=== PATIENT | male | born 1960 | race Caucasian/White ===

== ENCOUNTER 2016-11-17 10:37 | Day surgery (SDC) | payer BC ==
[2016-11-15 10:53] VITALS: BMI 30.6
[~2016-11-17 10:37] MED LIST: LACTATED RINGERS 1,000 ML IV SCH
[2016-11-17 11:06] VITALS: TEMP 97.7
[2016-11-17] MEDS ORDERED: LIDOCAINE 1% 20 ML VIAL (10MG/ML) FOR IV START INTRADERMA ONE (11:15)
[2016-11-17] MEDS ORDERED: MIDAZOLAM 2 MG/2 ML VIAL ONE (12:32)
[2016-11-17] MEDS ORDERED: PROPOFOL 10 MG/ML 20 ML VIAL IV ONE (12:32)
--- NOTE | 2016-11-17 12:40 | P.GSHP ---
History of Present Illness H&P Date: 11/17/16 Chief Complaint: Anemia, GI bleed This a 56-year-old male referred from Dr. Randall. Patient presents today for EGD and colonoscopy. He's had issues with rectal bleeding and anemia. - Constitutional Constitutional: Reports as per HPI Past Medical History Past Medical History: GERD/Reflux, Hypertension, Osteoarthritis (OA) Additional Past Medical History / Comment(s): anemia, recent episode of blood in stools History of Any Multi-Drug Resistant Organisms: None Reported Past Surgical History: Hernia Repair, Orthopedic Surgery Additional Past Surgical History / Comment(s): rt inguinal hernia repair, anderson hand sx Past Anesthesia/Blood Transfusion Reactions: Postoperative Nausea & Vomiting ( PONV) Additional Past Anesthesia/Blood Transfusion Reaction / Comment(s): claustrophobia Past Psychological History: No Psychological Hx Reported Additional Psychological History / Comment(s): PT LIVES AT HOME WITH HIS , 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 NO SERVICE. NO TRAVLES ABROAD. Smoking Status: Former smoker Past Alcohol Use History: None Reported Additional Past Alcohol Use History / Comment(s): started smoking at age 18 quit at age 38 smoked few cig per day Past Drug Use History: None Reported - Past Family History Father Family Medical History: Myocardial Infarction ([place]) Additional Family Medical History / Comment(s): at age 59 Mother Family Medical History: Myocardial Infarction ([place]) Additional Family Medical History / Comment(s): of mi at age 77 Brother(s) Family Medical History: Cancer Additional Family Medical History / Comment(s): at age 62 from pancreatic cancer Medications and Allergies Home Medications Medication Instructions Recorded Confirmed Type Aspirin 81 mg PO DAILY 12/23/15 11/17/16 History [place]-3 Fatty Acids/Fish Oil [Fish 1 cap PO DAILY 12/23/15 11/17/16 History Oil 1,000 mg Softgel] Losartan/Hydrochlorothiazide 1 each PO DAILY 11/15/16 11/17/16 History [Losartan-Hctz 100-25 mg Tab] Multivitamin [Men's Multi-Vitamin] 1 each PO DAILY 11/15/16 11/17/16 History Pantoprazole Sodium [Protonix] 40 mg PO DAILY 11/15/16 11/17/16 History amLODIPine [Norvasc] 5 mg PO DAILY 11/15/16 11/17/16 History Allergies Allergy/AdvReac Type Severity Reaction Status Date / Time No Known Allergies Allergy Verified 11/17/16 10:58 Surgical - Exam Vital Signs Temp Pulse Resp BP Pulse Ox 97.7 F 88 16 144/82 99 11/17/16 11:05 11/17/16 11:05 11/17/16 11:05 11/17/16 11:05 11/17/16 11:05 - General well developed, no distress - Eyes PERRL - ENT normal pinna - Neck no masses - Respiratory normal expansion - Cardiovascular Rhythm: regular - Abdomen Abdomen: soft, non tender Assessment and Plan Plan: GI bleed, anemia. We'll perform EGD and colonoscopy.
--- NOTE | 2016-11-17 12:59 | P.OP ---
Date of Procedure: 11/17/16 Preoperative Diagnosis: Anemia GI bleed Postoperative Diagnosis: Large hiatal hernia Mild esophagitis Antral gastritis Normal colon Procedure(s) Performed: EGD Colonoscopy Anesthesia: MAC Surgeon: Alfonso Vallejo Pathology: other (Antrum, esophagus) Condition: stable Disposition: PACU Description of Procedure: PROCEDURE: The patient was placed on the endoscopy table in the lateral position. Digital rectal examination was performed which revealed no abnormalities. The prostate was symmetrical without nodules. Flexible colonoscope was then placed in the patient's anus and passed throughout the entire colon. The ileocecal valve was visualized. The cecum, ascending, transverse, descending and sigmoid colon were normal. The rectum was normal as well. There were no masses, polyps or diverticula noted in the entire colon. Next, the gastroscope was placed oropharynx and passed into the esophagus and into the stomach. Scope was then placed through the pylorus. He first and second portion of the duodenum appeared normal. The scope was then brought back the antrum there is evidence of mild gastritis. This area is biopsied. The scope was then retroflexed and there was a large hiatal hernia. The GE junction was at 37 cm. The distal esophagus appeared minimally inflamed a biopsies was performed. The proximal esophagus appeared normal. Scope was then withdrawn for patient.
[2016-11-17 13:05] VITALS: RESP 18
[2016-11-17 13:38] VITALS: BP 130/77; PULSE 83
== END 2016-11-17 14:00 | disposition home or self-care (01) ==
LOC: ORWHC2ENDO 10:37
PROVIDERS: ATTEND Surgery
DX: K21.0 Gastro-esophageal reflux disease with esophagitis (principal); K44.9 Diaphragmatic hernia without obstruction or gangrene; K29.50 Unspecified chronic gastritis without bleeding; D64.9 Anemia, unspecified; Z87.19 Personal history of other diseases of the digestive system; I10 Essential (primary) hypertension; M19.90 Unspecified osteoarthritis, unspecified site; Z79.82 Long term (current) use of aspirin; Z79.899 Other long term (current) drug therapy; Z87.891 Personal history of nicotine dependence
CPT/HCPCS: 88305; 88342; 45378; 43239; J2250; J2704

== ENCOUNTER 2016-12-13 07:50 | Observation (INO) | payer BC ==
[2016-12-06 15:51] VITALS: BMI 31.5
[~2016-12-13 07:50] MED LIST changes: +DEXAMETHASONE SOD PHOSPHATE 10 MG/ML 1 ML VIAL IV ONE; +HEPARIN SODIUM,PORCINE 5,000 UNIT/ML 1 ML VIAL SQ ONE; -LACTATED RINGERS 1,000 ML IV SCH; +LIDOCAINE 1% 20 ML VIAL (10MG/ML) FOR IV START INTRADERMA PRN; +ONDANSETRON 4 MG/2 ML VIAL IVP ONE; +SCOPOLAMINE 1.5MG/72HR PATCH TRANSDERM ONE; +ceFAZolin 2 GM in SODIUM CHLORIDE 0.9% 100 ML IVPB ONE
[2016-12-13] MEDS: LACTATED RINGERS 1,000 ML IV SCH (08:21)
--- NOTE | 2016-12-13 08:51 | P.GSHP ---
History of Present Illness H&P Date: 12/13/16 Chief Complaint: GERD This is a 56-year-old male referred from Dr. Randall.The patient has had long- standing problems with reflux esophagitis. The patient underwent recent EGD is found have evidence of esophagitis. Patient has been well informed on the procedure of laparoscopic Derrick fundoplication. The patient is aware the risk of the conversion to the open procedure, risk of injury to the stomach, liver and spleen. The patient is also a risk of recurrent GERD and dysphagia symptoms. The patient understands there is a postoperative diet of full liquids for 2 weeks after surgery. - Constitutional Constitutional: Reports as per HPI Past Medical History Past Medical History: GERD/Reflux, Hypertension, Osteoarthritis (OA) Additional Past Medical History / Comment(s): anemia, recent episode of blood in stools- RESOLVED, HIATAL HERNIA History of Any Multi-Drug Resistant Organisms: None Reported Past Surgical History: Hernia Repair, Orthopedic Surgery Additional Past Surgical History / Comment(s): rt inguinal hernia repair, anderson hand sx, EGD AND COLONOSCOPY 11/17/16 Past Anesthesia/Blood Transfusion Reactions: Postoperative Nausea & Vomiting ( PONV) Additional Past Anesthesia/Blood Transfusion Reaction / Comment(s): claustrophobia Past Psychological History: No Psychological Hx Reported Additional Psychological History / Comment(s): PT LIVES AT HOME WITH HIS , 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 NO SERVICE. NO TRAVLES ABROAD. Smoking Status: Former smoker Past Alcohol Use History: None Reported Additional Past Alcohol Use History / Comment(s): started smoking at age 18 quit at age 38 smoked few cig per day Past Drug Use History: None Reported - Past Family History Father Family Medical History: Myocardial Infarction ([place]) Additional Family Medical History / Comment(s): at age 59 Mother Family Medical History: Myocardial Infarction ([place]) Additional Family Medical History / Comment(s): of mi at age 77 Brother(s) Family Medical History: Cancer Additional Family Medical History / Comment(s): at age 62 from pancreatic cancer Medications and Allergies Home Medications Medication Instructions Recorded Confirmed Type Aspirin 81 mg PO DAILY 12/23/15 12/06/16 History [place]-3 Fatty Acids/Fish Oil [Fish 1 cap PO DAILY 12/23/15 12/06/16 History Oil 1,000 mg Softgel] Losartan/Hydrochlorothiazide 1 each PO DAILY 11/15/16 12/06/16 History [Losartan-Hctz 100-25 mg Tab] Multivitamin [Men's Multi-Vitamin] 1 each PO DAILY 11/15/16 12/06/16 History Pantoprazole Sodium [Protonix] 40 mg PO DAILY 11/15/16 12/06/16 History amLODIPine [Norvasc] 5 mg PO DAILY 11/15/16 12/06/16 History Allergies Allergy/AdvReac Type Severity Reaction Status Date / Time No Known Allergies Allergy Verified 12/13/16 08:18 Surgical - Exam Vital Signs Temp Pulse Resp BP Pulse Ox 97.1 F L 84 16 157/103 98 12/13/16 08:20 12/13/16 08:20 12/13/16 08:20 12/13/16 08:20 12/13/16 08:20 - General well developed, no distress - Eyes PERRL - ENT normal pinna - Neck no masses - Respiratory normal expansion - Cardiovascular Rhythm: regular - Abdomen Abdomen: soft, non tender Assessment and Plan Plan: GERD. We'll perform laparoscopic Derrick fundoplication.
[2016-12-13] MEDS ORDERED: LIDOCAINE 1% INJ 10MG/ML (20 ML MDV) ONE (09:24)
[2016-12-13] MEDS ORDERED: MIDAZOLAM 2 MG/2 ML VIAL ONE (09:24)
[2016-12-13] MEDS ORDERED: PROPOFOL 10 MG/ML 20 ML VIAL IV ONE (09:24)
[2016-12-13] MEDS ORDERED: SUCCINYLCHOLINE CHLORIDE 100 MG/5 ML SYR IV ONE (09:24)
[2016-12-13] MEDS ORDERED: GLYCOPYRROLATE 0.2 MG/ML 2 ML VIAL ONE (09:24)
[2016-12-13] MEDS ORDERED: PHENYLEPHRINE-0.9% NACL SYG 1 MG/10 ML SYRINGE ONE (09:24)
[2016-12-13] MEDS ORDERED: HYDROmorphone (PF) 1 MG/ML ONE (09:24)
[2016-12-13] MEDS ORDERED: fentaNYL (PF) 50 MCG/ML 2 ML AMP ONE (09:24)
[2016-12-13] MEDS ORDERED: ePHEDrine 50 MG/ML 1 ML AMP ONE (09:24)
[2016-12-13] MEDS ORDERED: ROCURONIUM BROMIDE 10 MG/ML 10 ML VIAL IV ONE (09:24)
[2016-12-13] MEDS ORDERED: NEOSTIGMINE 1 MG/ML 10 ML VIAL ONE (09:24)
[2016-12-13] MEDS ORDERED: BUPIVACAIN-EPI 0.25%-1:200,000 30 ML VIAL SQ ONE (09:48)
[2016-12-13] MEDS ORDERED: LACTATED RINGERS 1,000 ML IV ONE ×2 (10:13→11:46)
[2016-12-13] MEDS ORDERED: ONDANSETRON 4 MG/2 ML VIAL IVP PRN ×2 (10:29→18:21)
--- NOTE | 2016-12-13 10:29 | P.OP ---
Date of Procedure: 12/13/16 Preoperative Diagnosis: GERD Postoperative Diagnosis: GERD Procedure(s) Performed: Laparoscopic Derrick fundoplication Implants: Anesthesia: CASIMIRO Surgeon: Alfonso Vallejo Estimated Blood Loss (ml): 5 Pathology: none sent Condition: stable Disposition: PACU Indications for Procedure: Operative Findings: Description of Procedure: The patient was placed on the operating table in the supine position. The patient received general anesthesia. And was placed in dorsal lithotomy position. The patient was prepped and draped in the usual sterile fashion. The skin incision sites were anesthetized with 1% local Xylocaine. The skin was incised in the left periumbilical area and then using a blade less 5 mm trocar under direct visualization panel cavity was entered. After adequate insufflation the laparoscope was then placed into the peritoneal cavity. Next a 5 mm trochars placed in the right epigastric position. Another 5 millimeter trocar the right lateral position. Another 5 millimeter trocar in the left lateral position a 5 mm trocar is placed in the left epigastric position. And then the initial 5 mm trocar was exchanged for a 10 mm trocar. The left lateral lobe liver was retracted. The hernia was seen. The crural defect was then dissected using the Harmonic scissors device. A 360 crural dissection was performed the esophagus stomach was reduced back into the peritoneal Cavity. The crural defect was then closed using 2-0 Ethibond suture. Next the fundus of the stomach was mobilized using the [place] scissors device. and then a 58-Montserratian bougie dilator was placed oropharynx passed into the esophagus and stomach the fundal plication wrap was then performed by grasping the fundus posteriorly and bringing it around the esophagus and stomach fundoplication was then performed using 2-0 Ethibond suture. Care was taken that the fundal location rested over top of the intra-abdominal esophagus. There was no injury seen to the stomach or esophagus. The dilator was then withdrawn. The abdomen was irrigated there is no bleeding seen. The trochars were then withdrawn and then skin incision sites were closed using 3-0 Monocryl suture Steri-Strips are applied. Patient thought procedure well and sent to recovery room in stable condition.
[2016-12-13] MEDS: HYDROmorphone 1 MG/ML 1 ML SYRINGE IVP PRN ×3 (10:37→11:05)
[2016-12-13] MEDS ORDERED: KETOROLAC 30 MG/ML 1 ML VIAL IVP ONE (11:00)
[2016-12-13] MEDS: METOCLOPRAMIDE 5 MG/ML 2 ML VIAL IVP SCH ×2 (14:19→17:00)
[2016-12-13] MEDS ORDERED: SCOPOLAMINE 1.5MG/72HR PATCH TRANSDERM SCH (18:30)
[2016-12-13] MEDS: D5-0.45% NACL WITH KCL 20MEQ/L 1,000 ML IV SCH (19:35)
[2016-12-14] MEDS: D5-0.45% NACL WITH KCL 20MEQ/L 1,000 ML IV SCH ×2 (00:14→09:57)
[2016-12-14] MEDS: METOCLOPRAMIDE 5 MG/ML 2 ML VIAL IVP SCH ×2 (00:21→05:28)
[2016-12-14 01:11] VITALS: RESP 16
[2016-12-14] MEDS: HYDROmorphone 1 MG/ML 1 ML SYRINGE IVP PRN ×3 (01:57→11:59)
[2016-12-14 07:08] VITALS: BP 128/79; PULSE 90; TEMP 97.1
[2016-12-14] MEDS ORDERED: amLODIPine 5 MG TAB PO SCH (09:00)
[2016-12-14] MEDS ORDERED: ENOXAPARIN 40 MG/0.4 ML SYRINGE SQ SCH (09:00)
[2016-12-14] MEDS ORDERED: ASPIRIN 81 MG CHEW PO SCH (09:00)
[2016-12-14] MEDS ORDERED: LOSARTAN-HCTZ 50-12.5 MG 1 EACH TAB PO SCH (09:00)
[2016-12-14] MEDS: LACTATED RINGERS 1,000 ML IV SCH (09:57)
--- NOTE | 2016-12-14 10:29 | FL ---
SINGLE CONTRAST ESOPHAGRAM: CLINICAL HISTORY: 56-year-old male rule out leak/obstruction, status post Derrick fundoplication TECHNIQUE: Single contrast exam performed with 50 ml Omnipaque 350 contrast. Total fluoroscopy time: 40 seconds. FINDINGS: The patient swallowed oral contrast without difficulty or delay. Esophageal peristalsis and motility are within normal limits. There is mild delay in the passage of contrast from the lower esophagus i nto the stomach with a intermittent intraesophageal reflux. There is intermittent passage into the st omach with postoperative changes of Derrick fundoplication. There is no evidence of contrast extravasa tion to suggest leak. No free air seen. IMPRESSION: No evidence of leak status post Derrick fundoplication. There is mild obstruction suggestive of postsu rgical edema. No free air.
--- NOTE | 2016-12-14 10:53 | CONS ---
DATE OF CONSULTATION: This is a 56-year-old white male, a long-standing patient of mine that had severe reflux esophagitis. He has tried many years to try to control it with protein pump inhibitors without any success. Recently had an EGD, which showed moderately severe esophagitis along with continuous dysphagic symptoms and was only able to drink fluids for the last couple of weeks at which time he saw Dr. Vallejo and the patient was prepared for a Derrick procedure and it was completed. His past medical history of anemia recently secondary from esophageal bleeding. His colonoscopy was negative. He also has a large hiatal hernia, which has been present there over the last several years. Past surgical history is hernia repair and he had orthopedic surgery multiple on his feet. His medical history is that of long-standing history of hypertension. His medications including aspirin 81 a day, [place]-3 for fish oil, losartan, hydrochlorothiazide 125 daily, multiple vitamin daily, Protonix 40 daily and Norvasc 5 mg a day. He has no allergies. Family history is significant, he had a brother who of pancreatic cancer. He had a mother who had a myocardial infarction, at the age of 77 and multiple history of hypertension in the family. He is a nonsmoker, nondrinker. 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 He has no drug use and he does not drink alcohol. REVIEW OF SYSTEMS: CARDIOPULMONARY: He has no shortness of breath or chest pain, orthopnea, no paroxysmal nocturnal dyspnea. GI: No hematemesis but he has gastritis problems and esophagitis with severe abdominal pain, nausea and occasional vomiting and did have some melena. has been negative. NEUROMUSCULAR: He has arthritis in his hands and his knees. He has also had a surgery on his left knee. He also has some minimal problems with his lower back and has been stable. Vital signs today shows blood pressure 120/79, heart rate is in the 90s, respiratory rate is 16, temperature is 97.1. EYES: Pupils are equal, round, and reactive to light and accommodation. ENT: Showed tympanic membranes and pharynx to be negative. Neck is supple with midline trachea. CHEST: Essentially clear to auscultation. HEART: Sinus rhythm with no murmur. ABDOMEN: Soft, I have got some incisions that are present no palpable masses. No organomegaly. ASSESSMENT: 1. Derrick funduscopic fundoplication surgery. 2. Long-standing history of hypertension. 3. Gastroesophageal reflux. 4. Generalized osteoarthritis. PLAN: Will continue with the medication. I will follow him accordingly postoperative. At this time, he is stable. Thank you, Dr. Vallejo for consult.
--- NOTE | 2016-12-14 11:44 | P.DS ---
Providers Date of admission: 12/13/16 17:44 Expected date of discharge: 12/14/16 Attending physician: Alfonso Vallejo Consults: 12/13/16 10:29 Consult Physician Routine Consulting Provider: Papi Randall Consult Reason/Comments: Medical management Do you want consulting provider notified?: Yes Primary care physician: Papi Randall Hospital Course: Patient is a 56-year-old male, patient of Dr. Randall in the outpatient setting, with medical history significant for reflux esophagitis not managed with conservative treatment. Patient presented to the hospital for elective laparoscopic Derrick fundoplication. Patient tolerated procedure well. Postoperative swallow study without evidence of leak or obstruction. Patient had no complaints of dysphagia. Patient had an uneventful postoperative recovery and was deemed stable for discharge to home with close follow-up in the outpatient setting. Discharge diagnoses: GERD status post laparoscopic Derrick fundoplication. The above impression and plan have been discussed and directed by Dr. Vallejo. Mariaelena FLOYD acting as scribe for Dr. Vallejo. Pertinent Studies: Pharynx slightly airings with fluoroscopy Procedures: Laparoscopic Derrick fundoplication Patient Condition at Discharge: Good Plan - Discharge Summary New Discharge Prescriptions: Docusate [Colace] 100 mg PO BID #20 capsule HYDROcodone/APAP 7.5-325MG [[place] 7.5-325] 1 tab PO Q6HR PRN #28 tab PRN Reason: Pain Discharge Medication List Aspirin 81 mg PO DAILY 12/23/15 [History] [place]-3 Fatty Acids/Fish Oil [Fish Oil 1,000 mg Softgel] 1 cap PO DAILY [History] Losartan/Hydrochlorothiazide [Losartan-Hctz 100-25 mg Tab] 1 tab PO DAILY [History] Multivitamin [Men's Multi-Vitamin] 1 tab PO DAILY 11/15/16 [History] amLODIPine [Norvasc] 5 mg PO DAILY 11/15/16 [History] Docusate [Colace] 100 mg PO BID #20 capsule 12/14/16 [Rx] HYDROcodone/APAP 7.5-325MG [[place] 7.5-325] 1 tab PO Q6HR PRN #28 tab 12/14/16 [ Rx] Follow up Appointment(s)/Referral(s): Papi Randall MD [Primary Care Provider] - 1 Week Alfonso Vallejo MD [STAFF PHYSICIAN] - 2 Weeks Patient Instructions/Handouts: *Surgery [facility] - ([facility]) Lap Derrick Fundiplication Post-Op Instructions Activity/Diet/Wound Care/Special Instructions: No heavy lifting, pushing, or pulling items greater than 10 pounds. Full liquid diet for 2 weeks. No caffeinated beverages or straws. Shower daily, no soaking in bath tubs, pools, or hot tubs. No driving while taking pain medication. Notify surgeon with any signs or symptoms of infection, increased pain, or not tolerating diet. Discharge Disposition: HOME SELF-CARE
== END 2016-12-14 12:50 | disposition home or self-care (01) ==
LOC: OR 07:50 → EDSTATUS 10:00 → 3SUR 10:37 → OR 17:46
PROVIDERS: ADMIT Surgery; ATTEND Surgery
DX: K44.9 Diaphragmatic hernia without obstruction or gangrene (principal); K21.0 Gastro-esophageal reflux disease with esophagitis; I10 Essential (primary) hypertension; D64.9 Anemia, unspecified; M15.9 Polyosteoarthritis, unspecified; Z87.891 Personal history of nicotine dependence; Z82.49 Family history of ischemic heart disease and other diseases of the circulatory system; Z79.899 Other long term (current) drug therapy; Z79.82 Long term (current) use of aspirin
CPT/HCPCS: 74210; 43280; G0378 ×2; J2250; J1644; J1100; J2710; J2765 ×2; Q9967; J0690; J2405 ×2; J2001; J1650; J3010; J1885; J1170 ×2; J2370; J0330; J2704; 96374; 96375; 96376

== ENCOUNTER → 2018-05-15 | Outpatient (CLI) | payer BC ==
[2018-05-15 11:40] LABS: Partial Thromboplastin Time 22.5 sec (22.0-30.0); Prothrombin Time 10.1 sec (9.0-12.0)
[2018-05-15 11:41] LABS: HCT 43.4 % (39.0-53.0); HGB 14.4 gm/dL (13.0-17.5); MCHC 33.2 g/dL (31.0-37.0); MCV 96.4 fL (80.0-100.0); Platelet Count 307 k/uL (150-450); RDW 12.5 % (11.5-15.5); WBC 7.2 k/uL (3.8-10.6)
[2018-05-15 11:45] LABS: Appearance,Urine Clear (Clear); Bilirubin,Urine Negative (Negative); Blood,Urine Negative (Negative); Color,Urine Yellow; Glucose,Urine (UA) Negative (Negative); Ketones,Urine Negative (Negative); Leukocyte Esterase,Urine Negative (Negative); Nitrite,Urine Negative (Negative); PH, Urine 6.5 (5.0-8.0); Protein,Urine Negative (Negative); Specific Gravity,Urine 1.016 (1.001-1.035); Urobilinogen,Urine <2.0 mg/dL (<2.0)
[2018-05-15 12:06] LABS: ALT 42 U/L (21-72); AST 26 U/L (17-59); Albumin 3.9 g/dL (3.5-5.0); Alkaline Phosphatase 49 U/L (38-126); Anion Gap 9 mmol/L; Blood Urea Nitrogen 19 mg/dL (9-20); Calcium 9.7 mg/dL (8.4-10.2); Carbon Dioxide 27 mmol/L (22-30); Chloride 104 mmol/L (98-107); Glucose 98 mg/dL (74-99); Sodium 140 mmol/L (137-145); Total Bilirubin 0.4 mg/dL (0.2-1.3); Total Protein 6.9 g/dL (6.3-8.2)
== END | disposition home or self-care (01) ==
LOC: LABWHC1 09:34
PROVIDERS: ATTEND Orthopaedic Surgery
DX: Z01.812 Encounter for preprocedural laboratory examination (principal); Z79.01 Long term (current) use of anticoagulants
CPT/HCPCS: 36415; 80053; 81003; 85027; 85610; 85730; 87070

== ENCOUNTER 2018-06-12 05:38 | Inpatient (IN) | payer BC ==
[~2018-06-12 05:38] MED LIST changes: +ACETAMINOPHEN TAB 500 MG TAB PO ONE; -DEXAMETHASONE SOD PHOSPHATE 10 MG/ML 1 ML VIAL IV ONE; -HEPARIN SODIUM,PORCINE 5,000 UNIT/ML 1 ML VIAL SQ ONE; -LIDOCAINE 1% 20 ML VIAL (10MG/ML) FOR IV START INTRADERMA PRN; +MELOXICAM 7.5 MG TAB PO ONE; -ONDANSETRON 4 MG/2 ML VIAL IVP ONE; -SCOPOLAMINE 1.5MG/72HR PATCH TRANSDERM ONE; +TRANEXAMIC ACID 1,000 MG in SODIUM CHLORIDE 0.9% 50 ML IVPB ONE; -ceFAZolin 2 GM in SODIUM CHLORIDE 0.9% 100 ML IVPB ONE; +ceFAZolin IN SWFI 2 GM/20 ML SYRINGE IVP ONE
[2018-06-12] MEDS ORDERED: ONDANSETRON 4 MG/2 ML VIAL IVP ONE (05:52)
[2018-06-12] MEDS ORDERED: SCOPOLAMINE 1.5MG/72HR PATCH TRANSDERM ONE (05:52)
[2018-06-12] MEDS ORDERED: MIDAZOLAM 2 MG/2 ML VIAL IV PRN (05:52)
[2018-06-12] MEDS ORDERED: LACTATED RINGERS 1,000 ML IV SCH (05:52)
[2018-06-12] MEDS ORDERED: HYDROmorphone 0.5 MG/0.5 ML SYRINGE IVP PRN (05:52)
[2018-06-12] MEDS ORDERED: DEXAMETHASONE SOD PHOSPHATE 10 MG/ML 1 ML VIAL IV ONE (05:52)
[2018-06-12] MEDS ORDERED: NALOXONE 0.4 MG/ML 1 ML VIAL IV PRN (06:59)
[2018-06-12] MEDS ORDERED: MAGNESIUM HYDROXIDE 2,400 MG/10 ML CUP PO PRN (06:59)
[2018-06-12] MEDS ORDERED: DIAZEPAM 5 MG TAB PO PRN (06:59)
[2018-06-12] MEDS ORDERED: NA PHOS,M-B/NA PHOS,DI-BA 133 ML ENEMA RECTAL PRN (06:59)
[2018-06-12] MEDS ORDERED: HYDROcodone/APAP 5-325MG 1 EACH TAB PO PRN (06:59)
[2018-06-12] MEDS ORDERED: hydrOXYzine PAMOATE 25 MG CAP PO PRN (06:59)
[2018-06-12] MEDS ORDERED: ONDANSETRON 4 MG/2 ML VIAL IVP PRN (06:59)
[2018-06-12] MEDS ORDERED: HYDROmorphone 1 MG/ML 1 ML SYRINGE IVP PRN ×3 (06:59)
[2018-06-12] MEDS ORDERED: BISACODYL 10 MG SUPP RECTAL PRN (06:59)
[2018-06-12] MEDS ORDERED: TRANEXAMIC ACID 1,000 MG/10 ML VIAL ONE (07:05)
[2018-06-12] MEDS ORDERED: SODIUM CHLORIDE 0.9% 100 ML BAG ONE (07:05)
[2018-06-12] MEDS ORDERED: fentaNYL (PF) 50 MCG/ML 2 ML AMP ONE (07:05)
[2018-06-12] MEDS ORDERED: PROPOFOL 10 MG/ML 20 ML VIAL IV ONE (07:05)
[2018-06-12] MEDS ORDERED: MIDAZOLAM 2 MG/2 ML VIAL ONE (07:05)
[2018-06-12] MEDS ORDERED: ROPIVACAINE 1,100 MG, SODIUM CHLORIDE 0.9% 500 ML 330 ML MISCELLANE PRN ×2 (07:10)
--- NOTE | 2018-06-12 07:13 | P.ONQ ---
Anesthesiology Proc Note - PNB - Peripheral Nerve Block Performed Right Adductor Canal Infusion Time Out Performed: Yes Procedure Start Time: 06:24 Procedure Stop Time: 06:30 Indication: Acute Post-Operative Pain, Requested by physician Sedation Type: Sedate with meaningful contact maintained Preparation: Sterile Dressing Position: Supine Catheter: Indwelling Needle Types: On-Q Needle Size: 100mm (4") Needle Gauge: 21 Technique: Ultrasound Injectate: 0.5% Ropivacaine (see comment for volume) (ropi .5% 20cc) Blood Aspirated: No Pain Paresthesia on Injection Noted: No Resistance on Injection: Normal Events: Uneventful and Well Tolerated
[2018-06-12] MEDS ORDERED: ceFAZolin 3,000 MG in SODIUM CHLORIDE 0.9% IRRIGATIO 3,000 ML IRRIGATION ONE (07:31)
[2018-06-12] MEDS: ROPIVACAINE 246.25 MG, EPINEPHrine 0.5 MG, KETOROLAC 30 MG, cloNIDine HCL/PF 80 MCG, WA... MISCELLANE ONE ×10 (07:55→08:26)
[2018-06-12] MEDS ORDERED: LACTATED RINGERS 1,000 ML IV ONE (08:40)
--- NOTE | 2018-06-12 08:46 | P.OP ---
Date of Procedure: 06/12/18 Preoperative Diagnosis: Severe osteoarthritis right knee Postoperative Diagnosis: Severe osteoarthritis right knee Procedure(s) Performed: Right total knee arthroplasty Implants: Cowan and Nephew Journey II CR Oxinium cruciate retaining femoral component size 7, right Cowan & Nephew Journey right nonporous tibial baseplate size 7 Cowan & Nephew Journey II, XLPE CR articular insert, size 9 mm, Size 7-8 right Cowan [employer] Nephew Journey BCS resurfacing oval patellar component, 32 mm All components were cemented using [place] R bone cement.. The articulation is Oxinium on polyethylene. Anesthesia: spinal Surgeon: Kristopher Harrison Electron Beam Machine Welder Setter #1: Ankita Maldonado Estimated Blood Loss (ml): 50 Pathology: other (Bone and cartilage) Condition: stable Disposition: PACU Indications for Procedure: After failure of conservative treatment we discussed the surgical and nonsurgical treatment options at length. Patient wishes to proceed with a total knee arthroplasty. Complications specific to this procedure were discussed at length, including but not limited to infection, bleeding, stiffness , and nerve injury. Patient is aware of all these complications and informed consent was obtained Operative Findings: The operative findings are consistent with severe osteoarthritis of the right knee Description of Procedure: Patient was seen in the preoperative area consent was reviewed and operative site was marked with a skin marker. An adductor canal pain catheter was placed by anesthesia in the preoperative area. Patient was then brought to the operating room and given preoperative antibiotics intravenously. A spinal anesthetic was administered by the anesthesia department. A tourniquet was placed on the upper thigh and the lower extremity was prepped and draped in usual sterile fashion. A gram of transexamic acid was given. A universal timeout was then performed which confirmed the patient's name, surgical site, ALLERGIES, and consent. The lower extremity was then exsanguinated and tourniquet was inflated to 250 mmHg. A standard and anterior midline approach to the knee was performed. The skin and subcutaneous tissue was dissected down to the patellar tendon. A medial parapatellar arthrotomy was then performed. The knee was then extended, the patellar was everted, and the knee was again flexed. Anterior horns of both menisci were excised, and a release was performed to the posterior medial aspect of the knee. On gross visual inspection, there was complete loss of articular cartilage in the medial and patellofemoral joint spaces. There was also significant cartilage damage in the lateral compartment. There were multiple periarticular osteophytes which were then removed with a Ronguer. The femoral canal was then opened with the appropriate drill, and the intramedullary femoral cutting guide was then placed and set for 5 of valgus. The distal femoral cutting block was then pinned in place, and the distal femur was then cut. The cutting block was then removed and the cut was checked for flatness. Next, the sizing guide was then placed and set for 3 external rotation based off of the epicondylar axis and [place]ites[place] line. After the femur was sized, the appropriate 4-in-1 cutting block was then pinned in place. The anterior condyles were cut without notching. The posterior and chamfer cuts were performed while protecting the collateral ligaments. The cutting block was then removed, and the femoral canal was plugged with autologous bone. Attention was then directed to the tibia. The remaining ACL was removed with a Ronguer, and the tibia was then gently subluxed forward with a large bent knee retractor. Any remaining menisci was excised. The posterior lateral corner was cauterized in order to cauterize the lateral geniculate artery. The extra medullary tibial cutting guide was then placed, set for the appropriate rotation , slope, and depth of resection. The proximal tibia cutting guide was then pinned in place. Proximal tibia was then cut and sized. Next trials were then placed with the appropriate-sized insert. The knee was able to fully extend and flex to 130 and was stable throughout all range of motion. The knee was then extended, patella everted. Patella was then measured, and then using an osteotomy guide, the patella was cut at the appropriate level. The patella was then measured and drilled and the patella trial was then placed. The knee was then taken through range of motion with the patella trial and the patella tracked normally. The knee was then extended patella trial was then removed and the patella was everted. Knee was then flexed and lug holes were drilled through the femoral trial and the femoral trial was then removed. The tibial was then exposed, and the tibial broach guide was then pinned in place after it was set for the appropriate rotation to allow for the most coverage without overhang. The tibia was then reamed and broached. The cut surfaces of bone were then irrigated with pulsatile lavage. The posterior structures were injected with the ropivacaine solution. The knee was also irrigated with Irrisept solution. The components were then opened, the cement was mixed, and the components were then cemented in place. The cement was allowed to harden with the knee in full extension. While the cement was hardening, the remaining soft tissues were then injected with a ropivacaine solution, which consisted of 246.25 mg of ropivacaine, 0.5 mg of epinephrine, 30 mg of Toradol, 80 g of clonidine, and 48.45 mL of sterile water, for a total of 100 mL of fluid injected. After the cemented hardened. The tourniquet was released, and hemostasis was obtained. A second gram of transexamic acid was given. The knee was again irrigated. The knee was again taken through range of motion and found to be stable throughout all range of motion of 0-130 , and the patella tracked normally. The fascia was then closed with #2 strata fix suture. The subcutaneous tissue was closed with 3-0 Vicryl and 3-0 strata fix. Dermabond glue was used for the skin and placed with the knee in flexion. The patient was placed in a sterile silver dressing. Patient was then transferred to recovery room in stable condition. The household personal assistant CHAD Mendoza was required due the complexity surgery and the need for a skilled surgical tech. She assisted in positioning, draping, retraction, and closure of the wound.
--- NOTE | 2018-06-12 09:52 | XR ---
EXAMINATION TYPE: XR knee limited RT DATE OF EXAM: 06/12/2018 COMPARISON: NONE HISTORY: 58-year-old male evaluation for postoperative abnormality and alignment TECHNIQUE: 2 views FINDINGS: Images show placement of right total knee arthroplasty. Both distal femoral and proximal tibial compo nents of the prosthesis appear well seated without periprosthetic fracture. Alignment grossly anatomi c. Anterior soft tissue irregularity, soft tissue air, as well as intra-articular air and joint fluid compatible with recent operation. IMPRESSION: Uncomplicated postoperative appearance right total knee arthroplasty.
[2018-06-12 10:16] VITALS: BMI 33.7
[2018-06-12] MEDS ORDERED: FERROUS SULFATE 325 MG TAB PO SCH (11:00)
[2018-06-12] MEDS: SODIUM CHLORIDE 0.9% 1,000 ML IV SCH ×2 (11:22→23:39)
--- NOTE | 2018-06-12 13:48 | P.CONS ---
History of Present Illness - Reason for Consult Consult date: 06/12/18 Medical Management Requesting physician: Kristopher Harrison - Chief Complaint s/p right TKA - History of Present Illness 58-year-old male who underwent elective right total knee arthroplasty on 06/12/[address] Randall was consulted for medical management. The patient has past medical history of osteoarthritis, hypertension , and GERD. The patient is a former cigarette smoker and quit smoking at the age of 38. He has a past surgical history of right inguinal hernia repair and bilateral hand surgeries. The patient was examined postoperatively on the surgical unit. Family is at the bedside. He states his pain is tolerable at this time. Denies shortness of breath, cough, or congestion. Denies chest pain or pressure. Denies nausea or vomiting. Patient is currently awaiting his lunch tray. We'll signs are stable at this time. REVIEW OF SYSTEMS: GENERAL: Patient denies fever. Denies chills. EYES: Denies blurred vision. Denies vision changes. Denies eye pain. EARS, NOSE, MOUTH, & THROAT: Denies headache. Denies sore throat. Denies ear pain. RESPIRATORY: Denies cough. Denies shortness of breath. Denies sputum production. Denies hemoptysis. CARDIOVASCULAR: Denies chest pain or pressure. Denies palpitations. Denies arrhythmias. GASTROINTESTINAL: Denies abdominal pain. Denies diarrhea. Denies constipation. Denies nausea. Denies vomiting. Denies heartburn. Denies blood in the stool. GENITOURINARY: Denies urinary frequency. Denies burning. Denies dysuria. Denies cloudy urine. Denies blood in the urine. MUSCULOSKELETAL: Denies myalgias. Denies joint swelling. Denies decreased range of motion beyond patients baseline. INTEGUMENTARY: Denies pruitis. Denies rash. PSYCHIATRIC: Denies suicidal or homicial ideations. ENDOCRINE: Denies weight change. Denies polydipsia. Denies polyuria. HEMATOLOGIC: Denies bleeding disorders. PHYSICAL EXAM GENERAL: This is a 58-year-old male in no apparent distress at the time of examination. Pleasant and cooperative. HEENT: Head is atraumatic, normocephalic. Pupils are equal, round, and reactive to light. Sclerae anicteric. Conjunctivae are clear. Mucus membranes of the mouth are moist. Neck is supple. RESPIRATORY: Clear to auscultation. No wheezes, rales, or rhonchi. No use of accessory muscles. Patient maintaining oxygen saturation greater than 92%. No chest wall tenderness is noted on palpation or with deep breathing. CARDIOVASCULAR: Regular rate and rhythm. S1 and S2 noted. No systolic or diastolic murmur auscultated. No JVD noted. No S3 or S4 noted. GASTROINTESTINAL: No distention noted. Abdomen soft and round. Normal active bowel sounds auscultated x 4 quadrants. No pain or tenderness noted upon palpation. INTEGUMENTARY: No cyanosis. No jaundice. No rashes noted. No cellulitis noted. EXTREMITIES: Xavier wrap to right lower extremity. Sensation intact. 2+ peripheral pulses. No evidence of peripheral edema. No calf tenderness noted. NEUROLOGIC: Cranial nerves II-XII grossly intact. PSYCHIATRIC: Awake, alert, and oriented X 3. Appropriate affect. Intact judgement and insight. ASSESSMENT: Osteoarthritis, status post right total knee arthroplasty Hypertension Gastroesophageal reflux disease History of right inguinal hernia repair History of bilateral hand surgeries Obesity: BMI 33.8 Remote history of nicotine dependence, patient quit smoking at age 38 PLAN: Continue postoperative care per Dr. Harrison. Activity as tolerated. PT/OT. Pain control. Resume home medications as appropriate. Monitor vital signs and address as appropriate. Incentive spirometer 10 times hour while awake. DVT prophylaxis: Aspirin 325 mg twice a day. GI prophylaxis: Pepcid 20 mg twice a day. Thank you for this consultation. We will continue to follow with Nicholas during his hospitalization. Nurse practitioner note has been reviewed by physician. Signing provider agrees with the documented findings, assessment, and plan of care. Past Medical History Past Medical History: GERD/Reflux, Hypertension, Osteoarthritis (OA) Additional Past Medical History / Comment(s): anemia, recent episode of blood in stools History of Any Multi-Drug Resistant Organisms: None Reported Past Surgical History: Hernia Repair, Orthopedic Surgery Additional Past Surgical History / Comment(s): rt inguinal hernia repair, anderson hand sx Past Anesthesia/Blood Transfusion Reactions: Postoperative Nausea & Vomiting ( PONV) Additional Past Anesthesia/Blood Transfusion Reaction / Comm: claustrophobia Past Psychological History: No Psychological Hx Reported Additional Psychological History / Comment(s): PT LIVES AT HOME WITH HIS , 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 NO SERVICE. NO TRAVLES ABROAD. Smoking Status: Former smoker Past Alcohol Use History: None Reported Additional Past Alcohol Use History / Comment(s): started smoking at age 18 quit at age 38 smoked few cig per day Past Drug Use History: None Reported - Past Family History Father Family Medical History: Myocardial Infarction ([place]) Additional Family Medical History / Comment(s): at age 59 Mother Family Medical History: Myocardial Infarction ([place]) Additional Family Medical History / Comment(s): of mi at age 77 Brother(s) Family Medical History: Cancer Additional Family Medical History / Comment(s): at age 62 from pancreatic cancer Medications and Allergies Home Medications Medication Instructions Recorded Confirmed Type Aspirin 81 mg PO DAILY 12/23/15 06/12/18 History [place]-3 Fatty Acids/Fish Oil [Fish 1 cap PO DAILY 12/23/15 06/12/18 History Oil 1,000 mg Softgel] Losartan/Hydrochlorothiazide 1 tab PO DAILY 11/15/16 06/12/18 History [Losartan-Hctz 100-25 mg Tab] Multivitamin [Men's Multi-Vitamin] 1 tab PO DAILY 11/15/16 06/12/18 History amLODIPine [Norvasc] 5 mg PO DAILY 11/15/16 06/12/18 History Docusate [Colace] 100 mg PO BID #20 capsule 12/14/16 06/12/18 Rx Ferrous Sulfate [Feosol] 325 mg PO MOWEFR 06/02/18 06/12/18 History Allergies Allergy/AdvReac Type Severity Reaction Status Date / Time No Known Allergies Allergy Verified 06/12/18 09:42 Physical Exam Vitals: Vital Signs Temp Pulse Pulse Pulse Resp BP Pulse Ox 06/12/18 12:00 95 137/92 96 06/12/18 11:50 16 06/12/18 11:30 91 134/88 97 06/12/18 11:15 86 117/70 90 L 06/12/18 11:00 86 123/84 95 06/12/18 10:45 87 128/87 97 06/12/18 10:30 98.3 F 85 16 135/85 96 06/12/18 09:50 82 16 148/82 95 06/12/18 09:35 82 16 119/73 94 L 06/12/18 09:20 83 16 104/72 97 06/12/18 09:06 97.2 F L 84 16 96/56 93 L 06/12/18 07:03 88 151/90 06/12/18 07:02 88 16 177/107 97 06/12/18 06:50 91 16 154/104 97 06/12/18 06:13 98.1 F 103 H 17 179/114 98 Intake and Output 06/11/18 06/12/18 06/12/18 22:59 06:59 14:59 Intake Total 1101 Output Total 50 Balance 1051 Intake: IV 1101 Output: Estimated Blood Loss 50 Other: Weight 116.12 kg
[2018-06-12] MEDS: ceFAZolin IN SWFI 2 GM/20 ML SYRINGE IVP SCH ×2 (15:33→23:38)
[2018-06-12] MEDS ORDERED: SENNOSIDES-DOCUSATE SODIUM 1 EACH TAB PO SCH (21:00)
[2018-06-12] MEDS: ASPIRIN 325 MG TAB PO SCH (21:31)
[2018-06-12] MEDS: DOCUSATE 100 MG CAP PO SCH (21:31)
[2018-06-12] MEDS: HYDROcodone/APAP 5-325MG 1 EACH TAB PO PRN (21:31)
[2018-06-12] MEDS: FAMOTIDINE 20 MG TAB PO SCH (21:32)
[2018-06-13 07:49] VITALS: RESP 16
[2018-06-13 08:04] LABS: Basophils % (A) 0 %; Eosinophils # (A) 0.1 k/uL (0-0.7); Eosinophils % (A) 1 %; HCT 38.6 % (39.0-53.0); HGB 12.7 gm/dL (13.0-17.5); Lymphocytes # (A) 1.9 k/uL (1.0-4.8); Lymphocytes % (A) 16 %; MCH 31.3 pg (25.0-35.0); MCHC 32.8 g/dL (31.0-37.0); MCV 95.7 fL (80.0-100.0); Mean Platelet Volume 6.9; Monocytes # (A) 1.1 k/uL (0-1.0); Monocytes % (A) 9 %; Neutrophils # (A) 8.7 k/uL (1.3-7.7); Neutrophils % (A) 72 %; Platelet Count 250 k/uL (150-450); RBC 4.04 m/uL (4.30-5.90); RDW 12.3 % (11.5-15.5); WBC 12.1 k/uL (3.8-10.6)
[2018-06-13] MEDS: DOCUSATE 100 MG CAP PO SCH (08:32)
[2018-06-13] MEDS: ASPIRIN 325 MG TAB PO SCH (08:32)
[2018-06-13] MEDS: FAMOTIDINE 20 MG TAB PO SCH (08:32)
--- NOTE | 2018-06-13 08:37 | P.PN ---
Progress Note - Text Progress Note Date: 06/13/18 The patient is status post[ 1] adductor canal catheter placement. The catheter was placed for postoperative pain control, status post total [Right Knee] arthroplasty. Ropivacaine 0.2% is infusing at[ 8] mLs per hour. The patient has no complaints of[ right] lower extremity numbness or weakness. Patient's VAS score is 5 -10. Assessment: Patient's adductor canal catheter is in place and working appropriately. Plan: continue infusion and adjust it as needed.
[2018-06-13] MEDS ORDERED: MELOXICAM 7.5 MG TAB PO SCH (09:00)
[2018-06-13] MEDS ORDERED: LOSARTAN-HCTZ 50-12.5 MG 1 EACH TAB PO SCH (09:00)
[2018-06-13] MEDS ORDERED: amLODIPine 5 MG TAB PO SCH (09:00)
--- NOTE | 2018-06-13 10:10 | P.PN ---
Subjective Progress Note Date: 06/13/18 58-year-old male who underwent elective right total knee arthroplasty on 06/12/[address]. Randall was consulted for medical management. The patient has past medical history of osteoarthritis, hypertension , and GERD. The patient is a former cigarette smoker and quit smoking at the age of 38. He has a past surgical history of right inguinal hernia repair and bilateral hand surgeries. 06/12/2018 The patient was examined postoperatively on the surgical unit. Family is at the bedside. He states his pain is tolerable at this time. Denies shortness of breath, cough, or congestion. Denies chest pain or pressure. Denies nausea or vomiting. Patient is currently awaiting his lunch tray. We'll signs are stable at this time. 06/13/2018 Patient examined at the bedside this morning. Patient reports his pain is tolerable. Denies nausea or vomiting. Denies chest pain or pressure. Vital signs remain stable. He is anticipating discharge home today. PHYSICAL EXAM GENERAL: This is a 58-year-old male in no apparent distress at the time of examination. Pleasant and cooperative. HEENT: Head is atraumatic, normocephalic. Pupils are equal, round, and reactive to light. Sclerae anicteric. Conjunctivae are clear. Mucus membranes of the mouth are moist. Neck is supple. RESPIRATORY: Clear to auscultation. No wheezes, rales, or rhonchi. No use of accessory muscles. Patient maintaining oxygen saturation greater than 92%. No chest wall tenderness is noted on palpation or with deep breathing. CARDIOVASCULAR: Regular rate and rhythm. S1 and S2 noted. No systolic or diastolic murmur auscultated. No JVD noted. No S3 or S4 noted. GASTROINTESTINAL: No distention noted. Abdomen soft and round. Normal active bowel sounds auscultated x 4 quadrants. No pain or tenderness noted upon palpation. INTEGUMENTARY: No cyanosis. No jaundice. No rashes noted. No cellulitis noted. EXTREMITIES: Dressing to right knee clean dry and intact.. Sensation intact. 2+ peripheral pulses. No evidence of peripheral edema. No calf tenderness noted. NEUROLOGIC: Cranial nerves II-XII grossly intact. PSYCHIATRIC: Awake, alert, and oriented X 3. Appropriate affect. Intact judgement and insight. ASSESSMENT: Osteoarthritis, status post right total knee arthroplasty Hypertension Gastroesophageal reflux disease History of right inguinal hernia repair History of bilateral hand surgeries Obesity: BMI 33.8 Remote history of nicotine dependence, patient quit smoking at age 38 PLAN: Continue postoperative care per Dr. Harrison. Activity as tolerated. PT/OT. Pain control. Resume home medications as appropriate. Monitor vital signs and address as appropriate. Incentive spirometer 10 times hour while awake. DVT prophylaxis: Aspirin 325 mg twice a day. GI prophylaxis: Pepcid 20 mg twice a day. Patient is stable for discharge from a medical standpoint when cleared by admitting/attending physician Nurse practitioner note has been reviewed by physician. Signing provider agrees with the documented findings, assessment, and plan of care. Objective - Vital Signs Vital signs: Vital Signs Temp 98.3 F 06/13/18 07:00 Pulse 79 06/13/18 07:00 Resp 16 06/13/18 07:00 BP 149/95 06/13/18 07:00 Pulse Ox 95 06/13/18 07:00 Intake & Output 06/12/18 06/13/18 06/13/18 18:59 06:59 18:59 Intake Total 1101 840 Output Total 700 Balance 401 840 Weight 116.12 kg Intake: IV 1101 Intake, IV Titration 840 Amount Sodium Chloride 0.9% 1, 840 000 ml @ 70 mls/hr IV . [id number] VALENTE Rx#:[id number] Output: Urine 650 Estimated Blood Loss 50 Other: # Voids 2 - Labs CBC & Chem 7: 06/13/18 07:34 Labs: Abnormal Lab Results - Last 24 Hours (Table) 06/13/18 Range/Units 07:34 WBC 12.1 H (3.8-10.6) k/uL RBC 4.04 L (4.30-5.90) m/uL Hgb 12.7 L (13.0-17.5) gm/dL Hct 38.6 L (39.0-53.0) % Neutrophils # 8.7 H (1.3-7.7) k/uL Monocytes # 1.1 H (0-1.0) k/uL
[2018-06-13] MEDS: HYDROcodone/APAP 5-325MG 1 EACH TAB PO PRN (11:09)
[2018-06-13] MEDS ORDERED: MULTIVITAMINS, THERA 1 EACH TAB PO SCH (12:00)
--- NOTE | 2018-06-13 13:01 | P.DS ---
Providers Date of admission: 06/12/18 05:38 Expected date of discharge: 06/13/18 Attending physician: Kristopher Harrison Consults: 06/12/18 06:59 Consult Physician Routine Consulting Provider: Papi Randall Consult Reason/Comments: medical management Do you want consulting provider notified?: Yes Primary care physician: Papi Randall - Discharge Diagnosis(es) (1) Primary osteoarthritis of right knee Current Visit: Yes Status: Acute (2) S/P total knee arthroplasty Current Visit: Yes Status: Acute Hospital Course: This is a 58-year-old male with known history of degenerative arthritis of the right knee. The patient presents for evaluation. After discussion and consideration patient elects to proceed with total knee arthroplasty. The patient is seen preoperatively by Dr. Harrison and medically cleared for surgery by their primary care physician. Patient is admitted to [facility] on 06/12/2018 for total knee arthroplasty. The procedures performed without complication or sequelae. The patient is doing well postoperatively. Labs and vital signs are stable on day of discharge. On day of discharge patient's knee incision is healing well. There is minimal erythema. There is no drainage noted at this time. There is minimal soft tissue swelling to the knee. Patient has full foot and ankle motion without difficulty or pain. Neurovascular status to the right lower extremity is intact. Patient is discharged home in good condition. Please see med rec for accurate list of home medications. Plan - Discharge Summary Discharge Rx Participant: Yes New Discharge Prescriptions: New Aspirin 325 mg PO BID #60 tab HYDROcodone/APAP 5-325MG [[place] 5-325] 1 - 2 tab PO Q4-6H PRN #84 tab PRN Reason: Pain Sennosides [Senokot] 1 tab PO BID #60 tablet Continue [place]-3 Fatty Acids/Fish Oil [Fish Oil 1,000 mg Softgel] 1 cap PO DAILY Multivitamin [Men's Multi-Vitamin] 1 tab PO DAILY amLODIPine [Norvasc] 5 mg PO DAILY Losartan/Hydrochlorothiazide [Losartan-Hctz 100-25 mg Tab] 1 tab PO DAILY Docusate [Colace] 100 mg PO BID #20 capsule Ferrous Sulfate [Iron (65 MG Elemental)] 325 mg PO MOWEFR No Action Aspirin 81 mg PO DAILY Discharge Medication List Aspirin 81 mg PO DAILY 12/23/15 [History] [place]-3 Fatty Acids/Fish Oil [Fish Oil 1,000 mg Softgel] 1 cap PO DAILY [History] Losartan/Hydrochlorothiazide [Losartan-Hctz 100-25 mg Tab] 1 tab PO DAILY [History] Multivitamin [Men's Multi-Vitamin] 1 tab PO DAILY 11/15/16 [History] amLODIPine [Norvasc] 5 mg PO DAILY 11/15/16 [History] Docusate [Colace] 100 mg PO BID #20 capsule 12/14/16 [Rx] Ferrous Sulfate [Iron (65 MG Elemental)] 325 mg PO MOWEFR 06/02/18 [History] Aspirin 325 mg PO BID #60 tab 06/13/18 [Rx] HYDROcodone/APAP 5-325MG [[place] 5-325] 1 - 2 tab PO Q4-6H PRN #84 tab 06/13/18 [ Rx] Sennosides [Senokot] 1 tab PO BID #60 tablet 06/13/18 [Rx] Follow up Appointment(s)/Referral(s): [facility], [NON-STAFF] - Papi Randall MD [Primary Care Provider] - 1 Week Kristopher Harrison DO [Doctor of Osteopathic Medicine] - 06/28/18 1:00 pm Ambulatory/Diagnostic Orders: Continuous Passive Motion (CPM) Machine [DME.AMB1] Time Frame: 3 Weeks, Location : None Selected Activity/Diet/Wound Care/Special Instructions: Weightbearing as tolerated with a walker. CPM 5-6h daily. Leave dressing intact. May be removed by home care nurse in 10 days. May shower with dressing on. Please call [facility] with any questions or concerns, . Discharge Disposition: HOME WITH HOME HEALTH SERVICES
[2018-06-13 15:27] VITALS: BP 130/76; PULSE 86; TEMP 98.1
== END 2018-06-13 17:55 | disposition home health service (06) | DRG 470 ==
LOC: 2ORMAIN 05:38 → 4SSUR 08:59
PROVIDERS: ADMIT Orthopaedic Surgery; ATTEND Orthopaedic Surgery
PROC: 0SRC069 Replacement of Right Knee Joint with Oxidized Zirconium on Polyethylene Synthetic Substitute, Cemented, Open Approach (ICD-10-PCS; principal; 2018-06-12 07:00)
DX: M17.11 Unilateral primary osteoarthritis, right knee (principal); E66.9 Obesity, unspecified; F40.240 Claustrophobia; I10 Essential (primary) hypertension; K21.9 Gastro-esophageal reflux disease without esophagitis; Z68.33 Body mass index [BMI] 33.0-33.9, adult; Z79.82 Long term (current) use of aspirin; Z80.0 Family history of malignant neoplasm of digestive organs; Z82.49 Family history of ischemic heart disease and other diseases of the circulatory system; Z87.891 Personal history of nicotine dependence; Z79.899 Other long term (current) drug therapy
CPT/HCPCS: 85025; 88300